=== PATIENT | female | born 1990 | race Caucasian/White ===

== ENCOUNTER 2016-11-17 16:54 | Emergency (ER) | payer OTHER ==
[2016-11-17 17:05] VITALS: TEMP 97.9
--- NOTE | 2016-11-17 17:11 | EDPHY ---
H & P Stated Complaint: AGUILAR SINCE THIS MORNING NOT RESPONSIVE TO TYLENOL Time Seen by Provider: 11/17/16 17:07 - Personal History LMP (Females 10-55): 15-21 Days Ago Current Tetanus/Diphtheria Vaccine: Yes - Medical/Surgical History Hx Asthma: No Hx Chronic Respiratory Disease: No Hx Diabetes: No Hx Cardiac Disease: No Hx Renal Disease: No Hx Cirrhosis: No Hx Alcoholism: No Hx HIV/AIDS: No Hx Splenectomy or Spleen Trauma: No Other PMH: DENIES - Social History Smoking Status: Never smoked Constitutional: Initial Vital Signs Temperature (C) 36.6 C 11/17/16 17:03 Heart Rate 89 11/17/16 17:03 Respiratory Rate 18 11/17/16 17:03 Blood Pressure 102/79 11/17/16 17:03 O2 Sat (%) 98 11/17/16 17:03 O2 Delivery Mode Room Air Allergies/Adverse Reactions: No Known Allergies Allergy (Unverified 11/17/16 17:00) Home Medications: Medication Instructions Recorded Bcp 11/17/16 Paracetamal 11/17/16 Medical Decision Making ED Course/Re-evaluation: CHIEF COMPLAINT: Headache HISTORY OF PRESENT ILLNESS: The patient is a 26 y/o female arriving with her complaining of an intractable headache onset 08:00 this morning, about 9 hours ago. She has a history of prior similar headaches, but this one has lasted longer than normal. Tylenol this morning did not alleviate her pain at all. She now has a right-sided headache with photophobia and phonophobia. She denies neck pain, blurred vision, weakness, numbness, fever, or other complaints. No recent illness or trauma. [place] 2 [place]. She is normally healthy. REVIEW OF SYSTEMS: A 10 point review of systems was performed and is negative with the exception of the elements mentioned in the history of present illness. PHYSICAL EXAM: HR, BP, O2 Sat, RR. Temp noted General Appearance: Alert, well hydrated, appropriate, and non-toxic appearing. Head: Atraumatic without scalp tenderness or obvious injury Eyes: Pupils equal, round, reactive to light and accommodation, EOMI, no trauma , no injection. Ears: Clear bilaterally, no perforation, normal landmarks Nose: Atraumatic, no rhinorrhea, clear. Throat: Mucus membranes moist. Neck: Supple, nontender, no lymphadenopathy. Respiratory: No retractions, no distress, no wheezes, and no accessory muscle use. Lungs are clear to auscultation bilaterally. Cardiovascular: Regular rate and rhythm, no murmurs, rubs, or gallops. Good capillary refill all extremities. Gastrointestinal: Abdomen is soft, nontender, non-distended, no masses, no rebound, no guarding, no peritoneal signs. Musculoskeletal: Normal active ROM of all extremities, atraumatic. Neurological: Alert, appropriate, and interactive. Nonfocal neuro exam. Skin: No rashes, good turgor, no nodules on palpation. Past medical history: Headaches Past surgical history: denies Family history: noncontributory Social history: at bedside. Lives in [place]. [employer] student. DIFFERENTIAL DIAGNOSIS: The differential diagnosis for the patient's headache included but was not limited to subarachnoid hemorrhage, migraine headache, tension headache and infectious causes such as meningitis, pharyngitis and sinusitis. MEDICAL DECISION MAKING: This is a healthy 26 y/o female with a history of headaches who presents with a 9-hour history of a continuous headache and photophobia that has not improved with Tylenol. She has a normal neuro exam and does not meet criteria for imaging. Plan for migraine cocktail including 10mg IV Metoclopramide, 10mg IV Decadron, 30mg IV Toradol, and 1L IV NS. 1800: Reassessed patient. She is feeling improved after medication administration and feels ready to go home. Her neuro exam remains normal. Standard migraine care and follow up instructions given. - Data Points Medications Given: Discontinued Medications Dexamethasone (Decadron Injection) 10 mg IVP EDNOW ONE Stop: 11/17/16 17:17 Last Admin: 11/17/16 17:37 Dose: 10 mg Sodium Chloride (Ns) 1,000 mls @ 0 mls/hr IV EDNOW ONE; Wide Open PRN Reason: Protocol Stop: 11/17/16 17:16 Last Admin: 11/17/16 17:38 Dose: 1,000 mls Ketorolac Tromethamine (Toradol) 30 mg IVP EDNOW ONE Stop: 11/17/16 17:17 Last Admin: 11/17/16 17:37 Dose: 30 mg Metoclopramide HCl (Reglan Injection) 10 mg IVP EDNOW ONE Stop: 11/17/16 17:17 Last Admin: 11/17/16 17:37 Dose: 10 mg Departure - Departure Disposition: Home, Routine, Self-Care Clinical Impression: Migraine Qualifiers: Migraine type: other Status migrainosus presence: without status migrainosus Intractability: not intractable Qualified Code(s): G43.809 - Other migraine, not intractable, without status migrainosus Condition: Good Instructions: Migraine Headache (ED) Additional Instructions: 1. Use Excedrin as directed on the packaging as needed for migraine headaches. 2. Follow up with Dr. Yin, neurologist, in the next 1-2 weeks to discuss evaluation and management of migraines. 3. Return to the ED for severe pain, weakness, numbness, or other worsening of condition. Referrals: NONE *PRIMARY CARE P,. [Primary Care Provider] - As per Instructions Jose Yin MD [Medical Doctor] - As per Instructions Report Scribed for: Unruly Sagastume Report Scribed by: Dariana Cohen Date of Report: 11/17/16 Time of Report: 17:12
[2016-11-17] MEDS ORDERED: NS 1,000 ML IV ONE (17:15)
[2016-11-17] MEDS ORDERED: METOCLOPRAMIDE 10 MG/2 ML VIAL IVP ONE (17:16)
[2016-11-17] MEDS ORDERED: KETOROLAC 30 MG/1 ML SDV IVP ONE (17:16)
[2016-11-17] MEDS ORDERED: DEXAMETHASONE 10 MG/ML VIAL IVP ONE (17:16)
[2016-11-17 18:15] VITALS: BP 118/76; PULSE 80; RESP 16; O2SAT 100
== END 2016-11-17 18:15 | disposition home or self-care (01) ==
DX: G43.809 Other migraine, not intractable, without status migrainosus (principal); E86.9 Volume depletion, unspecified
CPT/HCPCS: 96374; J1100; J1885; J2765